=== PATIENT | female | born 1955 | race Caucasian/White ===

== ENCOUNTER 2018-06-06 18:42 | Emergency (ER) | payer OTHER ==
[~2018-06-06] VITALS: Ht 160 cm; Wt 93.0 kg
[2018-06-06] MEDS ORDERED: SIMVASTATIN10 MG PO (19:14)
[2018-06-06] MEDS ORDERED: PRINIVIL5 MG PO (19:14)
[2018-06-06] MEDS ORDERED: EFFEXOR XR37.5 MG PO (19:14)
[2018-06-06] MEDS ORDERED: NORCO 5-325 TA1 EACH PO (19:52)
[2018-06-06] MEDS ORDERED: CRUTCH1 EACH MISC (19:52)
== END 2018-06-06 20:25 | disposition home or self-care (01) ==
LOC: ED 18:42
PROC: 2W3LX1Z Immobilization of Right Lower Extremity using Splint (ICD-10-PCS; principal; 2018-06-06)
DX: S80.01XA Contusion of right knee, initial encounter (principal); I10 Essential (primary) hypertension; Z88.8 Allergy status to other drugs, medicaments and biological substances; Z79.899 Other long term (current) drug therapy; W01.0XXA Fall on same level from slipping, tripping and stumbling without subsequent striking against object, initial encounter
CPT/HCPCS: 29505; 73560; 99283